=== PATIENT | male | born 1975 ===

== ENCOUNTER 2017-03-27 08:38 | Emergency (ER) | payer MEDICAID ==
[2017-03-27 08:55] VITALS: O2SAT 98
[2017-03-27] MEDS ORDERED: Tetracaine 0.5% Ophth (OR ONLY) OD ONE (09:13)
--- NOTE | 2017-03-27 09:15 | C.PDOC ---
History Of Present Illness Patient presents to ED c/o progessively worsening visual loss in the left eye for approx 1 week. He states yesterday and today he is unable to see out of the left eye. He denies pain, redness, injuries/foreign bodies, headache, dizziness. He does admit to some clear discharge from eye. Time Seen by Provider: 03/27/17 08:48 Chief Complaint (Nursing): Eye Problem History Per: Patient History/Exam Limitations: no limitations Onset/Duration Of Symptoms: Days (7 worsening) Current Symptoms Are (Timing): Still Present Severity: Moderate Past Medical History Reviewed: Historical Data, Nursing Documentation, Vital Signs Vital Signs: Last Vital Signs Temp 97.9 F 03/27/17 10:00 Pulse 74 03/27/17 10:00 Resp 16 03/27/17 10:00 BP 120/75 03/27/17 10:00 Pulse Ox 98 03/27/17 10:00 - Medical History PMH: No Chronic Diseases Family History: States: No Known Family Hx - Social History Hx Alcohol Use: Yes Hx Substance Use: No Review Of Systems Except As Marked, All Systems Reviewed And Found Negative. Constitutional: Negative for: Fever, Chills Eyes: Positive for: Other (left eye visual loss) Skin: Negative for: Rash Neurological: Negative for: Confusion, Altered Mental Status, Headache, Dizziness Physical Exam - Physical Exam Appears: Well, Non-toxic, No Acute Distress Skin: Normal Color, Warm, Dry Head: Atraumatic, Normacephalic Eye(s): bilateral: Normal Inspection (mild clear discharge left eye), PERRL, EOMI Oral Mucosa: Moist Cardiovascular: Rhythm Regular Respiratory: Normal Breath Sounds, No Rales, No Rhonchi, No Wheezing Neurological/Psych: Oriented x3 ED Course And Treatment O2 Sat by Pulse Oximetry: 98 (RA) Pulse Ox Interpretation: Normal Progress Note: Bedside US done by me, left sided retinal detachment seen. Ocular pressures - right 19, left 21. Visual acuity right side 20/200 without glasses, left side nothing. 9:30- Pending call back from opthamology. 9:40am- Spoke with front office java developer ophtho Dr. Zamudio (currently in [place]), recommends I call [facility] in to see if retinal specialist is in today. 9:45am- Spoke with retina specialst Dr. Valdez, she would like patient to come to office now and they will see him emergently. Patient instructed to go to [facility] upon discharge. Disposition Counseled Patient/Family Regarding: Studies Performed, Diagnosis, Need For Followup - Disposition Referrals: Nancy Valdez MD [Medical Doctor] - Disposition: HOME/ ROUTINE Disposition Time: 09:50 Condition: STABLE Additional Instructions: IR A [facility] [facility] [place], [address] GO TO [facility] AFTER DISCHARGE, [address] Forms: General Discharge Instructions, [facility] ([employer]) Print Language: FIJIAN - Clinical Impression Clinical Impression: Retinal detachment Procedure: Bedside Ultrasound - Time Performed Time Performed: 09:05 - Type of Ultrasound Type of Ultrasound:: Other (ocular ) - Consent Obtained Consent obtained: Emergent consent implied - Performed by Performed by: Attending Physician - Indication Indications:: Other (left eye visual deficit) - Other Other: left eye - (+) retinal detachment visualized on US, right eye WNL - Patient tolerated procedure Patient Tolerated Procedure:: Well
[2017-03-27] MEDS ORDERED: Fluorescein 1 mg Ophthalmic Strip ONE (09:30)
[2017-03-27] MEDS ORDERED: Tetracaine 0.5% Ophth (OR ONLY) ONE (09:30)
[2017-03-27 10:02] VITALS: BP 120/75; PULSE 74; RESP 16; TEMP 97.9
== END 2017-03-27 10:04 | disposition home or self-care (01) ==
LOC: C.ER 08:38
DX: H33.22 Serous retinal detachment, left eye (principal)